=== PATIENT | female | born 1965 | race African-American/Black ===

== ENCOUNTER 2019-06-12 12:17 | Emergency (ER) | payer MEDICAID ==
[~2019-06-12] VITALS: Ht 165.1 cm; Wt 100.0 kg
[2019-06-12 15:50] VITALS: BP 158/82
== END 2019-06-12 15:55 | disposition home or self-care (01) ==
LOC: ER 12:17
DX: E11.65 Type 2 diabetes mellitus with hyperglycemia (principal); I10 Essential (primary) hypertension
CPT/HCPCS: 82962; 99283